=== PATIENT | female | born 1940 | race Caucasian/White ===

== ENCOUNTER 2016-10-23 09:29 | Day surgery (SDC) | payer OTHER ==
[2016-10-18 14:23] LABS: Basophils # (auto) 0 uL; Basophils % (auto) 0.9 % (0.0-2.0); CONDITION Y; Eosinophils # (auto) 0.1 uL; Hematocrit 38.4 % (36.0-46.0); Lymphocytes # (auto) 1.8 uL; Lymphocytes % (auto) 31.5 % (10.0-50.0); Mean Corpuscular Hemoglobin 30.3 pg (28.0-32.0); Mean Corpuscular Hgb Conc. 33.7 g/dL (32.0-36.0); Mean Corpuscular Volume 89.9 fL (80.0-100.0); Mean Platelet Volume 9.9 fL (7.4-10.4); Monocytes # (auto) 0.7 uL; Neutrophils % (auto) 53.6 % (37.0-80.0); Platelet Count (auto) 229 10^3/uL (140-450); Red Cell Distribution Width 14.9 % (11.6-16.0); White Blood Cell 5.7 10^3/uL (4.4-10.8)
[2016-10-18 14:39] LABS: INR 0.95 (0.9-1.15); Partial Thromboplastin Time 27.2 sec (22.64-33.71); Prothrombin Time 10.4 sec (9.37-12.3)
[2016-10-18 14:45] LABS: Urine Bilirubin Negative (Negative); Urine Blood Negative /uL (Negative); Urine Color Yellow (Yellow); Urine Glucose Normal (Normal); Urine Ketone Negative (Negative); Urine Mucus FEW (None Seen); Urine Nitrite Negative (Negative); Urine RBC <1 /hpf (0 - 4); Urine Squamous Epithelial Cell FEW /hpf (<5); Urine Urobilinogen Normal (Negative)
[2016-10-18 14:47] LABS: BUN/Creatinine Ratio 15.5; Calcium 8.8 mg/dL (8.5-10.1); Potassium 4.1 mmol/L (3.5-5.1)
[~2016-10-23] VITALS: Ht 162.6 cm; Wt 86.2 kg
[~2016-10-23 09:29] MED LIST: CITA-77 PO; DULO20CA PO; ENAL20TA70 PO; NAP500T PO
[2016-10-23] MEDS ORDERED: ceFAZolin 1GM/50ML D5W 50 ML IV ONE (09:45)
[2016-10-23] MEDS ORDERED: MITOMYCIN 40 MG in STERILE WATER 60 ML IS ONE (10:45)
[2016-10-23] MEDS ORDERED: fentaNYL CITRATE 100 MCG/2 ML VL ONE (11:55)
[2016-10-23] MEDS ORDERED: MIDAZOLAM HCL 1MG/1ML-2 ML VIAL ONE (11:55)
[2016-10-23] MEDS ORDERED: BELLADONNA ALKAL/OPIUM (16.2/30MG) RECT SUPP PR ONE (13:00)
[2016-10-23] MEDS ORDERED: PROPOFOL 10 MG/ML 20 ML IV ONE (13:14)
[2016-10-23] MEDS ORDERED: LIDOCAINE HCL 2 %PF INJ 10ML AMP IJ ONE (13:14)
[2016-10-23] MEDS ORDERED: ONDANSETRON HCL 4 MG/2 ML VIAL IV ONE (13:30)
[2016-10-23] MEDS ORDERED: LABETALOL HCL 5 MG/ML 4ML SYRINGE IV PRN (13:30)
[2016-10-23] MEDS ORDERED: HYDROmorphone HCL 2 MG/ML VL IV PRN ×2 (13:30)
[2016-10-23] MEDS ORDERED: hydrALAZINE HCL 20 MG/ML VL IV PRN (13:30)
[2016-10-23 14:34] VITALS: BP 154/77
== END 2016-10-23 14:44 | disposition home or self-care (01) ==
LOC: SUR 09:29
PROVIDERS: ATTEND Urology
DX: D49.4 Neoplasm of unspecified behavior of bladder (principal); C67.9 Malignant neoplasm of bladder, unspecified; E66.9 Obesity, unspecified; Z87.891 Personal history of nicotine dependence; Z90.710 Acquired absence of both cervix and uterus; I10 Essential (primary) hypertension
CPT/HCPCS: 36415; 52224; 80048; 81001; 85025; 85610; 85730; 86850; 86900; 86901; 87086; 88305; J0690; J2250; J2704; J3010; J9280

== ENCOUNTER 2019-01-01 14:09 | Emergency (ER) | payer OTHER ==
[~2019-01-01] VITALS: Ht 162.6 cm; Wt 86.2 kg
[~2019-01-01 14:09] MED LIST changes: +ENAL20TA PO; -ENAL20TA70 PO
[2019-01-01 14:16] VITALS: BP 155/99
[2019-01-01] MEDS ORDERED: ACETAMINOPHEN 325 MG TAB PO ONE (15:15)
[2019-01-01] MEDS ORDERED: TETANUS-DIPTH-ACEL PERTUSSIS 0.5ML SYRG IM ONE (15:15)
[2019-01-01] MEDS ORDERED: cefTRIAXone SOD 1,000 MG VL IM ONE (15:15)
== END 2019-01-01 15:51 | disposition home or self-care (01) ==
LOC: ER 14:10
DX: S62.316A Displaced fracture of base of fifth metacarpal bone, right hand, initial encounter for closed fracture (principal); S61.431A Puncture wound without foreign body of right hand, initial encounter; I10 Essential (primary) hypertension; Z79.899 Other long term (current) drug therapy; W54.0XXA Bitten by dog, initial encounter; Y93.89 Activity, other specified; Y99.8 Other external cause status; Y92.89 Other specified places as the place of occurrence of the external cause
CPT/HCPCS: 29125; 73130; 90471; 90715; 96372; 99283; J0696

== ENCOUNTER 2019-01-18 10:22 | Emergency (ER) | payer OTHER ==
[~2019-01-18] VITALS: Ht 162.6 cm; Wt 86.2 kg
[2019-01-18 10:37] VITALS: BP 150/75
== END 2019-01-18 12:08 | disposition home or self-care (01) ==
LOC: ER 10:22
DX: S62.316D Displaced fracture of base of fifth metacarpal bone, right hand, subsequent encounter for fracture with routine healing (principal); I10 Essential (primary) hypertension; Z79.899 Other long term (current) drug therapy; X58.XXXD Exposure to other specified factors, subsequent encounter
CPT/HCPCS: 73110

== ENCOUNTER 2019-12-31 10:31 | Emergency (ER) | payer OTHER ==
[~2019-12-31] VITALS: Ht 162.6 cm; Wt 81.6 kg
[~2019-12-31 10:31] MED LIST changes: -ENAL20TA PO; +ENAL20TA8 PO
[2019-12-31 12:12] VITALS: BP 143/86
== END 2019-12-31 12:20 | disposition home or self-care (01) ==
LOC: ER 10:31
DX: S70.02XA Contusion of left hip, initial encounter (principal); M54.5 Low back pain; W06.XXXA Fall from bed, initial encounter; Y93.89 Activity, other specified; Y99.8 Other external cause status; Y92.098 Other place in other non-institutional residence as the place of occurrence of the external cause
CPT/HCPCS: 72131; 73700